=== PATIENT | female | born 1995 | race Caucasian/White ===

== ENCOUNTER 2019-07-03 09:54 | Outpatient (CLI) | payer OTHER, SELFPAY ==
--- NOTE | ~2019-07-03 | US_ITS ---
EXAMINATION: US OB transvaginal DATE: 07/03/2019 10:46 INDICATION: Gestational dating TECHNIQUE: Real-time transabdominal and transvaginal obstetric ultrasound. FINDINGS: No prior studies for comparison. The uterus measures 8.1 x 5.6 x 5.3 cm. There is an intrauterine gestational sac, with pole mabel ntified. The crown rump length measures 0.63 cm, which correlates with a estimated gestational age o f 6 weeks 3 days. heart tones are identified measuring 130 BPM. Right ovary measures 2.2 x 1. 5 x 2.3 cm. Left ovary not visualized. IMPRESSION: 1. SL IUP with an EGA of 6 weeks, 3 days (EDC by current ultrasound of 02/23/2020). Reviewed, dictated and finalized at location A. IMPRESSION: 1. SL IUP with an EGA of 6 weeks, 3 days (EDC by current ultrasound of 02/23/20 20).
== END 2019-07-03 09:55 ==
PROVIDERS: Visit Provider Nurse Practitioner
DX: Z36.87 Encounter for antenatal screening for uncertain dates (principal); Z36.89 Encounter for other specified antenatal screening
CPT/HCPCS: 76817